=== PATIENT | male | born 1965 | race African-American/Black ===

== ENCOUNTER 2021-09-25 05:53 | Emergency (ER) | payer OTHER, MEDICAID ==
[~2021-09-25] VITALS: Ht 180.3 cm; Wt 76.7 kg
[2021-09-25 05:53] VITALS: BP_SYST 92
--- NOTE | 2021-09-25 05:53 | NUR ---
Placed in room 1 . Placed on patient monitor, blood pressure machine and pulse oximeter. To gown for exam. Side rails up. Report given to Raymundo UGARTE.
--- NOTE | 2021-09-25 05:58 | NUR ---
Code stroke activated.
--- NOTE | 2021-09-25 06:04 | NUR ---
Pt taken to CT w/ acls protocol awake via gurney.
[2021-09-25] MEDS ORDERED: iohexoL 350 mgI/mL, 100 ML INFUS..BTL IV ONE (06:11)
--- NOTE | 2021-09-25 06:14 | NUR ---
Pt back to ER bed [address]
--- NOTE | 2021-09-25 06:15 | NUR ---
Dr Nguyễn examining the pt at the bedside.
--- NOTE | 2021-09-25 06:16 | NUR ---
PATIENT BACK FROM CT SCAN, CT ANGIO INCOMPLETE DUE TO PATIENT BECOMING INCREASINGLY ALTERED AND PINPOINT PUPILS BECAME MORE OBVIOUS. PATIENT TAKEN BACK TO BED ONE AND PLACED ON 02 AND ON MONITOR. MD AT BEDSIDE ASSESSING PATIENT. NARCAN ORDERED DUE TO PATIENT'S STATUS AT THIS TIME.
[2021-09-25] MEDS ORDERED: NALOXONE HCL 2 MG/2 ML SYR ONE ×2 (06:17→06:33)
--- NOTE | 2021-09-25 06:20 | NUR ---
Urine specimen collected and sent to lab.
[2021-09-25 06:27] LABS: BASOPHILS % (AUTO) 0.6 % (0.0-2.0); EOSINOPHILS # (AUTO) 0.1 K/uL (0.0-0.4); HEMATOCRIT 36.9 % (36-54); HEMOGLOBIN 12.2 g/dL (14.0-18.0); LYMPHOCYTES % (AUTO) 27.8 % (20.5-51.5); MEAN CORPUSCULAR HEMOGLOBIN 32 pg (27-31); MEAN CORPUSCULAR HGB CONC 33 % (32-36); MEAN CORPUSCULAR VOLUME 96 fL (79.0-98.0); MONOCYTES # (AUTO) 0.6 K/uL (0.0-1.0); MONOCYTES % (AUTO) 8.1 % (1.7-9.3); NEUTROPHILS # (AUTO) 4.3 K/uL (1.8-7.7); NEUTROPHILS % (AUTO) 61.5 % (40.0-70.0); PLATELET COUNT (AUTO) 197 K/uL (130-430); RED BLOOD CELL COUNT(AUTO) 3.86 MIL/uL (4.2-6.2); RED CELL DISTRIBUTION WIDTH 15.6 % (9.0-15.0); WHITE BLOOD COUNT (AUTO) 7.1 K/uL (4.8-10.8)
[2021-09-25] MEDS ORDERED: NALOXONE HCL 2 MG/2 ML SYR IVP ONE ×3 (06:30→07:45)
[2021-09-25] MEDS ORDERED: NACL 0.9% 1,000 ML IV ONE ×2 (06:30→06:45)
--- NOTE | 2021-09-25 06:35 | NUR ---
PATIENT INCREASINGLY ALTERED AGAIN AFTER INITIALLY BECOMING INCREASINGLY ALERT S/P NARCAN IV GIVEN. MORE NARCAN GIVEN PER MD ORDERS. PATIENT RESPONSIVE TO NARCAN. TELE NEUROLOGY AWARE OF THIS AT THIS TIME. TELE NEUROLOGY ATTEMPTING TO DO ASSESSMENT.
[2021-09-25] MEDS ORDERED: NALOXONE HCL 0.4 MG/ML AMP (NARCAN) ONE (06:40)
--- NOTE | 2021-09-25 06:55 | NUR ---
PATIENT TAKEN TO CT ANGIO WITH TORITO WILKINS AND TORITO LANIER PLACED ON MONITOR.
[2021-09-25 07:15] LABS: BILIRUBIN,URINE 1+ (NEGATIVE); BLOOD, URINE 2+ (NEGATIVE); COLOR,URINE YELLOW (YELLOW); GLUCOSE,URINE NEGATIVE (NEGATIVE); KETONES,URINE NEGATIVE (NEGATIVE); LEUKOCYTE ESTERASE ,URINE NEGATIVE (NEGATIVE); NITRITE, URINE NEGATIVE (NEGATIVE); PH,URINE 5.5 (5.0-8.0); PROTEIN URINE 2+ (NEGATIVE)
--- NOTE | 2021-09-25 07:15 | NUR ---
REPORT GIVEN TO TORITO HAYS. PATIENT REMAINS IN CT SCAN FOR CT ANGIO WITH TORITO WILKINS.
--- NOTE | 2021-09-25 07:16 | NUR ---
REPORT RECEIVED FROM TORITO ANTONIO FOR CONTIUING CARE, PT IS IN CT WITH CHARGE NURSE TORITO WILKINS.
--- NOTE | 2021-09-25 07:20 | NUR ---
Returned from radiology, back to [facility].
[2021-09-25 07:28] LABS: BARBITURATE, URINE NEGATIVE (NEG <=200); BENZODIAZEPINE, URINE NEGATIVE (NEG <=150); CANNABINOID, URINE POSITIVE (NEG <=50); COCAINE, URINE NEGATIVE (NEG <=150); METHAMPHETAMINES SCREEN,URINE POSITIVE (NEG <=500); OPIATE, URINE NEGATIVE (NEG <=100); PHENCYCLIDINE SCREEN,URINE NEGATIVE (NEG <=25); UR TRICYCLIC ANTIDEPRESSANTS POSITIVE (NEG <=300); URINE AMPHETAMINE POSITIVE (NEG <=500); URINE METHADONE NEGATIVE (NEG <=200); URINE OXYCODONE SCREEN NEGATIVE (NEG <=100); URINE PROPOXYPHENE SCREEN NEGATIVE (NEG <=300)
[2021-09-25 07:30] LABS: CLARITY/URINE SLIGHTLY HAZY (CLEAR)
[2021-09-25 07:34] LABS: ANION GAP 12 (5-15); CALCIUM 8.3 mg/dL (8.4-11.0); CHLORIDE 106 mmol/L (98-107); CREATININE 2.02 mg/dL (0.55-1.30); GLUCOSE 90 mg/dL (70-99); POTASSIUM 4.6 mmol/L (3.5-5.1); SODIUM SERUM 137 mmol/L (136-145); UREA NITROGEN, BLOOD 34 mg/dL (8-21)
[2021-09-25 07:36] LABS: INR 2.5 (0.80-1.20); PROTHROMBIN TIME 24.3 SECS (9.5-12.5)
[2021-09-25 07:39] LABS: GFR AFRICAN AMERICAN 44 mL/min (>90)
--- NOTE | 2021-09-25 07:39 | NUR ---
LAB AT THE BEDSIDE FOR BLOOD DRAW
[2021-09-25 07:46] LABS: ALANINE AMINOTRANSFERASE 23 U/L (12-78); ALBUMIN 2.2 g/dL (3.4-4.8); ASPARTATE AMINOTRANSFERASE 23 U/L (10-37); TOTAL BILIRUBIN 0.5 mg/dL (0.0-1.0)
[2021-09-25 08:00] LABS: BACTERIA,URINE FEW /HPF (None Seen); WBC,URINE 0-3 /HPF (0-3)
[2021-09-25 08:01] LABS: MUCUS,URINE 1+ /LPF (None Seen)
--- NOTE | 2021-09-25 08:10 | NUR ---
PT AWAKE STATES HIS GIRLFRIEND'S NUMBER IS [phone]. ATTEMPT TO CALL NUMBER MADE. NUMBER IS DISCONNECTED. MD TORRES
[2021-09-25] MEDS ORDERED: ALTEPLASE 100 MG VIAL IV ONE (08:15)
[2021-09-25] MEDS ORDERED: ALTEPLASE IV ONE (08:30)
[2021-09-25] MEDS ORDERED: ALTEPLASE IVP ONE (08:30)
[2021-09-25] MEDS ORDERED: WATER FOR INJECTION STERILE IV ONE (08:30)
[2021-09-25] MEDS ORDERED: WATER FOR INJECTION STERILE IVP ONE (08:30)
[2021-09-25] MEDS ORDERED: ALTEPLASE 100 MG VIAL IVP ONE (08:45)
--- NOTE | 2021-09-25 12:33 | NUR ---
Called the [facility] ICU where pt is being transferred and gave report to TORITO Dickinson. Transfer by ambulance from the [facility] ER to [facility] ICU is scheduled for 1400.
[2021-09-25 13:52] VITALS: BP_SYST 98
--- NOTE | 2021-09-25 13:54 | NUR ---
Patient to be transferred to [facility]. Is being transferred due to higher level of care. Receiving facility has accepting physician and available space. ER physician Frankie has signed transfer form. Patient or responsible alliance party has agreed to transfer and signed form. Patient belongings inventoried and will be sent with patient. Copy of nursing notes, lab reports, EKG, Physicians Orders and X-rays to be sent with patient. Report called to TORITO Dickinson at receiving facility. Receiving physician is Frankie. [facility] arrived for transfer at 1350.
== END 2021-09-25 13:52 | disposition short-term general hospital (02) ==
LOC: SED 05:53
DX: R41.82 Altered mental status, unspecified (principal); F19.10 Other psychoactive substance abuse, uncomplicated; E11.9 Type 2 diabetes mellitus without complications; Z79.899 Other long term (current) drug therapy; Z20.822 Contact with and (suspected) exposure to COVID-19
CPT/HCPCS: 99291; 70496; 96374; 71045; 96375; 87426; 80307; 80053; 82140; 85025; 85610; 85730; 87040; 87086; 84484; 36415; 93005; 73060; 70498; 99292; 81000; 96376; 70450; 80048; 76376; J2997; G0482; Q9967; J2310